=== PATIENT | male | born 1970 | race Caucasian/White ===

== ENCOUNTER 2023-04-25 18:10 | Emergency (ER) | payer BC, SELFPAY ==
[2023-04-25] VITALS (16 sets, daily range): BP systolic 136–145; BP diastolic 77–87; PULSE 55–87; RESP 16–18; TEMP 36.9; O2SAT 95–99; BMI 32.3
--- NOTE | 2023-04-25 18:36 | CRLHL7_ITS ---
For Patients: As a result of the Century Cures Act, medical imaging exams and procedure reports are released immediately into your electronic medical record. You may view this report before your referring provider. If you have questions, please contact your health care provider. INDICATION: .chest discomfort. left side pain r/o PE TECHNIQUE: CT chest PE was acquired with 95 cc Isovue 370 IV contrast. COMPARISON: None FINDINGS: Pulmonary Arteries: Motion degrades evaluation of the distal segmental and subsegmental pulmonary arteries. No large central or proximal segmental pulmonary embolus. No pulmonary hypertension or right ventricular strain. Heart and Mediastinum: The visualized portions of the thyroid are normal. No axillary or supraclavicular lymphadenopathy. No mediastinal, hilar or retrocrural lymphadenopathy. Normal heart size. Normal caliber aorta. Lungs and Airways: 3 millimeter triangular-shaped opacity in the right upper lobe, axial image 5, likely reflecting intrapulmonary lymphoid tissue. Additional scattered 2-3 millimeter indeterminate pulmonary nodules. Bibasilar subsegmental atelectasis. No mass or consolidation. No endoluminal lesion. Pleura: The pleural spaces are normal. Abdomen: The visualized upper abdominal organs are unremarkable. Bones and soft tissues: Left teres minor lipoma measuring up to 34 millimeters. IMPRESSION: 1. Motion degrades evaluation of the distal segmental and subsegmental pulmonary arteries. No large central or proximal segmental pulmonary embolus. 2. No intrathoracic mass or consolidation. 3. Scattered 2-3 millimeter indeterminate pulmonary nodules which may reflect intrapulmonary lymphoid tissue. If the patient is considered low risk for primary lung cancer, these do not require additional follow-up. If the patient is considered high-risk for primary lung cancer, consider optional unenhanced chest CT in 12 months to document stability and to assess for underlying malignant potential per Fleischner society guidelines. 4. Left teres minor lipoma. Please note that all CT scans at this facility use dose modulation, iterative reconstruction, and/or weight-based dosing when appropriate to reduce radiation dose to as low as reasonably achievable. Dictated by Jarocho Tinoco MD @ 04/25/2023 8:12:20 PM (Electronically Signed)
--- NOTE | 2023-04-25 18:38 | ED_ITS ---
HPI - General Adult General Time Seen by Provider: 18:38 Date Seen: 04/25/23 Chief complaint: Chest Pain Stated complaint: chest pain Time Seen by Provider: 04/25/23 18:11 Source: patient Mode of arrival: ambulatory Limitations: no limitations History of Present Illness HPI narrative: Patient is a 52-year-old white male who is fairly active had a bronchial type infection a couple of months ago. He was given fairly given steroid medicine and then 2 weeks later given steroid medicine again. His congestion and cough symptoms seemed to improve but he continues to have some left lateral chest wall discomfort that he feels occasionally, worse with movement. He says occasionally feels short of breath but that is not constant, does not have any anterior chest pain. No leg swelling or edema, no bleeding or clotting problems. He works in a business capacity. The patient played football in May. He has not had any heart disease, chronic lung disease. Nonsmoker. He was coming back from [place] with his and he felt anxious about this and presents to the ED. Related Data Home Medications Medication Instructions Recorded Confirmed Mucinex 04/25/23 simvastatin 04/25/23 trazodone 04/25/23 Allergies Allergy/AdvReac Type Severity Reaction Status Date / Time No Known Drug Allergies Allergy Verified 04/25/23 18:26 Review of Systems Status of ROS: Reports: 6 or more systems reviewed and unremarkable except as noted in History and below [facility] Social History Smoking Status: Never smoker How often do you have a drink containing alcohol: 2-3 times a week AUDIT-C Alcohol total score: 3 Non-prescribed substance use: denies use Exam Narrative: Exam Narrative: Objective: Patient's vital signs look largely unremarkable O2 sat excellent afebrile Alert orient x3 noncyanotic no respiratory effort problems HEENT is nose no facial asymmetry no scleral icterus, neck is supple , chest is clear Heart rhythm regular without murmur No palpable chest wall pain, patient does point to his anterior axillary line in his lateral chest wall as to where he has had the sensation. Abdomen benign Extremities are no edema Neurologic nonfocal good peripheral perfusion noted Const: Vital Signs, click to edit/add: Vital Signs - 24 hr 04/25/23 18:15 04/25/23 18:22 04/25/23 18:23 Temperature 98.5 F Pulse Rate 69 84 Pulse Rate [Right Pulse Oximeter] 68 Respiratory Rate 18 16 Blood Pressure 141/85 H Blood Pressure [Le ft Upper Arm] 141/85 H Pulse Oximetry 97 98 97 Oxygen Delivery Me thod Room Air Room Air 04/25/23 18:30 04/25/23 18:32 04/25/23 18:57 Temperature Pulse Rate 87 79 80 Pulse Rate [Right Pulse Oximeter] Respiratory Rate 16 Blood Pressure 145/77 H Blood Pressure [Le ft Upper Arm] Pulse Oximetry 99 99 98 Oxygen Delivery Me thod Room Air 04/25/23 18:58 04/25/23 19:00 04/25/23 19:02 Temperature Pulse Rate 76 76 80 Pulse Rate [Right Pulse Oximeter] Respiratory Rate Blood Pressure 136/87 136/80 Blood Pressure [Le ft Upper Arm] Pulse Oximetry 95 96 97 Oxygen Delivery Me thod 04/25/23 19:15 Temperature Pulse Rate 74 Pulse Rate [Right Pulse Oximeter] Respiratory Rate Blood Pressure Blood Pressure [Le ft Upper Arm] Pulse Oximetry 97 Oxygen Delivery Me thod Course Vital Signs Vital signs: Initial Vital Signs Temperature 98.5 F 04/25/23 18:15 Temperature Source Temporal Artery Scan 04/25/23 18:15 Pulse Rate 68 04/25/23 18:15 Pulse Rhythm Regular 04/25/23 18:15 Respiratory Rate 18 04/25/23 18:15 Respiratory Effort Normal 04/25/23 18:15 Respiratory Depth Normal 04/25/23 18:15 Respiratory Pattern Normal 04/25/23 18:15 Blood Pressure 141/85 H 04/25/23 18:15 Blood Pressure Mean 103 04/25/23 18:15 Blood Pressure Position Semi-Fowlers 04/25/23 18:15 Pulse Oximetry 97 04/25/23 18:15 Oxygen Delivery Method Room Air 04/25/23 18:15 Vital Signs Temperature 98.5 F 04/25/23 18:15 Pulse Rate 68 04/25/23 18:15 Respiratory Rate 18 04/25/23 18:15 Blood Pressure 141/85 H 04/25/23 18:15 Pulse Oximetry 97 04/25/23 18:15 Oxygen Delivery Method Room Air 04/25/23 18:15 Temperature 98.5 F 04/25/23 18:15 Pulse Rate 74 04/25/23 19:15 Respiratory Rate 16 07/02/23 18:32 Blood Pressure 136/80 04/25/23 19:02 Pulse Oximetry 97 04/25/23 19:15 Oxygen Delivery Method Room Air 04/25/23 18:32 Medical Decision Making MDM Narrative Medical decision making narrative: 52-year-old white male with a history of pulmonary infection, treated with steroid medication, now with persistent left pleuritic type chest pain. Rule out pleurisy, rule out chest wall inflammation rule out intrapulmonary pathology, rule out PE, rule out pneumonia. I think at this point the patient should have a CT scan of the chest with IV contrast will get an EKG which today is obtained and shows normal sinus rhythm normal EKG no acute ST T wave changes by my read, the patient will get laboratory studies including troponin, D-dimer, CRP, electrolytes. A given aspirin while we are waiting for results 324 chewable. He has already been on steroids a couple of times I think simply an anti-inflammatory such as ibuprofen orally would be reasonable for a week or so to see if that relieves some of his symptomology. Also think this is triggered by his anxiety level about the issue that it may be cardiac related, my suspicion is that this is certainly not cardiac related given his normal EKG and the presentation. I think be vicente to check the above. He has were in agreement Addendum 8:05 p.m. patient's EKG shows normal sinus rhythm by my review no acute ST changes, troponin is negative, CBC and ER profile are negative, CRP is negative D-dimer is negative ER profile is negative. The patient's CT scan done with IV contrast if this is negative the patient will go home with anti- inflammatory such as Advil or Aleve and then follow up with primary care, if there is any evidence of infiltrate on CT then Zithromax or another antibiotic be used. Dr. Stanton will follow this CT up for report. Patient were comfortable plan Addendum: 8:15 p.m. there was some motion degradation, but no PE, no intrathoracic mass or consolidation he has got some scattered 2 mm intermediate pulmonary nodules which just might be lymphoid tissue if there is low risk for lung cancer Radiology felt no follow-up necessary if he is concerned he could repeat a CT in 12 months, there is a small muscle lipoma, recommend that jennifer use Advil or Aleve for 5-7 days recheck with primary doctor in the next few days return to ER ED if problems or concerns. I think this is likely an inflammatory pleuritic type pain, with reassuring findings on examination and CT scanning Lab Data Labs: Lab Results 04/25/23 Range/Units 18:20 WBC 7.01 (4.50-11.00) K/uL RBC 4.96 (4.30-5.90) m/uL Hgb 15.6 (13.5-17.5) gm/dL Hct 45.9 (37.0-53.0) % MCV 93 (80-100) fL MCH 32 (26-34) pg MCHC 34 (32-36) gm/dL RDW Coeff of Liliya 12.0 (11.5-15.5) % Plt Count 223 (140-440) K/uL Neut % (Auto) 55.2 (42.0-72.0) % Lymph % (Auto) 33.0 (20-44) % [place] % (Auto) 9.8 (0.0-11.0) % Eos % (Auto) 1.3 (0.0-7.0) % Baso % (Auto) 0.6 (0.0-3.0) % Neut # (Auto) 3.87 (1.7-7.0) K/uL Lymph # (Auto) 2.31 (0.90-2.90) K/uL [place] # (Auto) 0.70 (0.00-0.90) K/UL Eos # (Auto) 0.09 (0.00-0.50) K/uL Baso # (Auto) 0.04 (0.00-0.30) K/uL D-Dimer Quant (PE/DVT) 0.34 (0.00-0.50) ug/ml Sodium 138 (135-149) mmol/L Potassium 3.9 (3.6-5.1) mmol/L Chloride 104 (96-114) mmol/L Carbon Dioxide 23 (20-32) mmol/L BUN 16 (7-30) mg/dL Creatinine 1.0 (0.5-1.5) mg/dL Estimated Creat Clear 95.44 Estimated GFR 89 ml/min Glucose 85 (60-115) mg/dL Calcium 9.1 (8.4-10.6) mg/dL Total Bilirubin 0.6 (0.1-1.5) mg/dL Direct Bilirubin 0.2 (0.0-0.5) mg/dL AST 36 H (12-35) U/L ALT 30 (4-50) U/L Alkaline Phosphatase 83 (40-150) U/L Troponin I < 0.01 L (0.01-0.04) ng/mL C-Reactive Protein < 0.5 L (0.5-1.0) mg/dL NT-Pro-B Natriuret Pep < 20 pg/mL Total Protein 7.7 (6.0-8.3) g/dL Albumin 2.7 L (3.3-5.0) g/dL POC Troponin I 0.00 L (0.01-0.04) ng/ml Discharge Plan Discharge Clinical Impression: Acute chest wall pain, Pleurisy Patient Disposition: Home w/ Parent or Adult Condition: Stable Instructions: Pleurisy (ED) Additional Instructions: Recommend anti-inflammatory such as Aleve or ibuprofen daily for about 5-7 days, light activity, follow up with primary care in the next 2-3 days for reassessment. Return to ED sooner problems or concerns Activity Level: Light activity Discharge Diet: Regular Prescriptions: No Action trazodone simvastatin Mucinex Stand Alone Forms: MyHealth Info Instructions
[2023-04-25 18:55] LABS: Basophils Absolute Auto 0.04 K/uL (0.00-0.30); Basophils Percent Auto 0.6 % (0.0-3.0); Eosinophils Absolute Auto 0.09 K/uL (0.00-0.50); Eosinophils Percent Auto 1.3 % (0.0-7.0); Hematocrit 45.9 % (37.0-53.0); Hemoglobin* 15.6 gm/dL (13.5-17.5); Immature Granulocytes Abs Auto 0.01 K/uL (0.00-0.30); Immature Granulocytes Pct Auto 0.1 %; Lymphocytes Absolute Auto 2.31 K/uL (0.90-2.90); Mean Corpuscular HGB Conc 34 gm/dL (32-36); Mean Corpuscular Hemoglobin 32 pg (26-34); Mean Corpuscular Volume 93 fL (80-100); Monocytes Percent Auto 9.8 % (0.0-11.0); Neutrophils Absolute Auto 3.87 K/uL (1.7-7.0); Neutrophils Percent Auto 55.2 % (42.0-72.0); Platelet Count* 223 K/uL (140-440); Red Blood Count 4.96 m/uL (4.30-5.90); White Blood Count* 7.01 K/uL (4.50-11.00)
[2023-04-25 18:56] LABS: Slide Review Reflex No
[2023-04-25 18:58] LABS: Albumin* 2.7 g/dL (3.3-5.0); Chloride* 104 mmol/L (96-114)
[2023-04-25 18:59] LABS: Potassium* 3.9 mmol/L (3.6-5.1); Sodium* 138 mmol/L (135-149)
[2023-04-25 19:01] LABS: Est. Creatinine Clearance* 95.44; Estimated Glomerular Filt Rate 89 ml/min
[2023-04-25] MEDS: ASPIRIN 81 MG TAB.CHEW 324 MG PO (19:01)
[2023-04-25 19:02] LABS: Alanine Aminotransferase* 30 U/L (4-50); Alkaline Phosphatase* 83 U/L (40-150); Aspartate Amino Transferase* 36 U/L (12-35); Bilirubin Direct* 0.2 mg/dL (0.0-0.5); Bilirubin Total* 0.6 mg/dL (0.1-1.5); Blood Urea Nitrogen* 16 mg/dL (7-30); Calcium* 9.1 mg/dL (8.4-10.6); Carbon Dioxide* 23 mmol/L (20-32); Glucose* 85 mg/dL (60-115); Total Protein* 7.7 g/dL (6.0-8.3)
[2023-04-25] MEDS: 0.9 % SODIUM CHLORIDE 500 ML 500 ML IV (19:02)
[2023-04-25 19:03] LABS: D Dimer Quantitative* 0.34 ug/ml (0.00-0.50)
[2023-04-25 19:06] LABS: C Reactive Protein* < 0.5 mg/dL (0.5-1.0)
[2023-04-25 19:13] LABS: NT Pro B Type NatriureticPept* < 20 pg/mL
[2023-04-25 19:14] LABS: Troponin I* < 0.01 ng/mL (0.01-0.04)
== END 2023-04-25 20:23 | disposition home or self-care (01) ==
PROVIDERS: Emergency Provider Family Medicine
DX: R07.89 Other chest pain (principal); R09.1 Pleurisy
CPT/HCPCS: 36415; 71260; 80048; 80076; 83880; 84484; 85025; 85379; 86140; 93005; 94761; 99284; 99285; A9270; J7120; Q9967